=== PATIENT | female | born 1990 | race American Indian/Alaskan Native ===

== ENCOUNTER 2019-08-30 19:41 | Emergency (ER) | payer MEDICAID, OTHER ==
[2019-08-30 22:49] LABS: Bacteria,Urine 1+ /HPF (Negative); Bilirubin,Urine NEG (Negative); Blood,Urine MOD (Negative); Color,Urine Yellow (Yellow); Mucus,Urine FEW /HPF; Protein,Urine <15 mg/dL mg/dL (Negative); Urobilinogen,Urine < 2.0 mg/dL (<2.0)
[2019-08-30 23:28] LABS: Basophils % (Auto) 0.4 % (0.0-1.8); Eosinophils % (Auto) 0.2 % (0.0-4.3); Hemoglobin 13.9 gm/dl (10.1-14.3); Lymphocytes # (Auto) 1.5 K/mm3 (1.2-5.4); Lymphocytes % (Auto) 17.9 % (13.4-35.0); Mean Corpuscular HGB Conc 33 % (30-34); Mean Corpuscular Volume 91 fl (79-97); Monocytes # (Auto) 0.4 K/mm3 (0.0-0.8); Monocytes % (Auto) 5.1 % (0.0-7.3); Platelet Count 308 K/mm3 (140-440); Red Blood Count 4.62 M/mm3 (3.65-5.03); Red Cell Distribution Width 13.7 % (13.2-15.2)
[2019-08-30] MEDS ORDERED: MORPHINE 4 MG/1 ML INJ IV ONE (23:55)
[2019-08-30] MEDS ORDERED: ONDANSETRON 4 MG/2 ML INJ IV ONE (23:55)
[2019-08-30] MEDS ORDERED: SODIUM CHLORIDE 0.9% 1000 ML 1,000 ML IV ONE (23:56)
[2019-08-31 00:01] LABS: Alanine Aminotransferase 26 units/L (7-56); Albumin 4.5 g/dL (3.9-5); BUN/Creatinine Ratio 12; Blood Urea Nitrogen 12 mg/dL (7-17); Hemolysis Index 20
--- NOTE | 2019-08-31 01:01 | Emergency Department Report ---
ED Abdominal Pain HPI - General Chief Complaint: Abdominal Pain Stated Complaint: LEFT SIDE ABD PAIN Time Seen by Provider: 08/30/19 23:54 Source: patient Mode of arrival: Wheelchair Limitations: No Limitations - History of Present Illness Initial Comments: 28-year-old -[place] female presents to the emergency room for left flank pain that started this a.m. Patient states that is gotten worse at 6 PM this evening. Patient is taken nothing for pain. Patient reports he feels like she is having a baby. Patient reports she has a history of tubal ligation last menstrual period was 08/22/2019. Patient denies any vaginal bleeding or vaginal discharge. Patient reports her last BM was earlier today it was normal. She denies any diarrhea. Denies any vomiting. Patient reports it is dull mild pain and then had gotten severe. MD Complaint: flank pain -: This morning Location: L flank Radiation: none Severity scale (0 -10): 10 Quality: cramping, sharp Consistency: constant Improves With: nothing Worsens With: nothing Associated Symptoms: denies other symptoms - Related Data LMP Date: 08/22/19 Previous Rx's Medication Instructions Recorded Last Taken Type Vit-Fe Fumar-FA [ 1 each PO QDAY #30 tablet 03/28/12/30/14 Rx Vitamin] Acetaminophen/Codeine [Tylenol #3] 1 tab PO Q6H PRN #20 tab 09/05/15 Unknown Rx Clindamycin [Clindamycin CAP] 300 mg PO Q6H #40 capsule 09/05/15 Unknown Rx Loratadine (Nf) [Claritin] 10 mg PO DAILY #30 tablet 09/05/15 Unknown Rx Prednisone [predniSONE 10 mg 10 mg PO .TAPER #1 tab.ds.pk 09/05/15 Unknown Rx (6-Day Pack, 21 Tabs)] HYDROcodone/APAP 7.5-325 [[place] 1 each PO Q6HR PRN #12 tablet 08/31/19 Unknown Rx 7.5/325] Ibuprofen [Motrin 600 MG tab] 600 mg PO Q8H PRN #21 tablet 08/31/19 Unknown Rx Tamsulosin [Flomax] 0.4 mg PO QDAY 5 Days #5 cap 08/31/19 Unknown Rx Allergies Allergy/AdvReac Type Severity Reaction Status Date / Time Penicillins Allergy Shortness Verified 12/27/14 11:33 of Breath ED Review of Systems ROS: Stated complaint: LEFT SIDE ABD PAIN Other details as noted in HPI Comment: All other systems reviewed and negative ED Past Medical Hx - Past Medical History Previous Medical History?: Yes Hx Hypertension: No Hx Congestive Heart Failure: No Hx Diabetes: No Hx Deep Vein Thrombosis: No Hx GERD: Yes (with only) Hx Sickle Cell Disease: No Hx Headaches / Migraines: Yes (migraines) Hx Seizures: No Hx Asthma: No Hx COPD: No Hx HIV: No - Surgical History Past Surgical History?: Yes Additional Surgical History: Tubal ligation. - Social History Smoking Status: Never Smoker Substance Use Type: None - Medications Home Medications: Home Medications Medication Instructions Recorded Confirmed Last Taken Type Vit-Fe Fumar-FA [ 1 each PO QDAY #30 tablet 03/28/14 12/31/14 12/30/14 Rx Vitamin] Acetaminophen/Codeine [Tylenol #3] 1 tab PO Q6H PRN #20 tab 09/05/15 Unknown Rx Clindamycin [Clindamycin CAP] 300 mg PO Q6H #40 capsule 09/05/15 Unknown Rx Loratadine (Nf) [Claritin] 10 mg PO DAILY #30 tablet 09/05/15 Unknown Rx Prednisone [predniSONE 10 mg 10 mg PO .TAPER #1 tab.ds.pk 09/05/15 Unknown Rx (6-Day Pack, 21 Tabs)] HYDROcodone/APAP 7.5-325 [[place] 1 each PO Q6HR PRN #12 tablet 08/31/19 Unknown Rx 7.5/325] Ibuprofen [Motrin 600 MG tab] 600 mg PO Q8H PRN #21 tablet 08/31/19 Unknown Rx Tamsulosin [Flomax] 0.4 mg PO QDAY 5 Days #5 cap 08/31/19 Unknown Rx ED Physical Exam - General Limitations: No Limitations General appearance: alert, in distress, other (Patient is sitting [place] down when I entered the room) - Head Head exam: Present: atraumatic, normocephalic - Eye Eye exam: Present: normal appearance - ENT ENT exam: Present: mucous membranes moist - Respiratory Respiratory exam: Present: normal lung sounds bilaterally. Absent: respiratory distress - Cardiovascular Cardiovascular Exam: Present: regular rate, normal rhythm. Absent: systolic murmur, diastolic murmur, rubs, gallop - GI/Abdominal GI/Abdominal exam: Present: soft, tenderness (Left flank tenderness). Absent: distended - Back Exam Back exam: Present: CVA tenderness (L) - Neurological Exam Neurological exam: Present: alert, oriented X3 - Psychiatric Psychiatric exam: Present: normal affect, normal mood - Skin Skin exam: Present: warm, dry, intact, normal color. Absent: rash ED Course Vital Signs 08/30/19 08/31/19 08/31/19 20:00 01:05 01:35 Temperature 98.4 F Pulse Rate 74 Respiratory 18 20 20 Rate Blood Pressure 137/71 O2 Sat by Pulse 100 Oximetry ED Medical Decision Making - Lab Data Result diagrams: 08/30/19 22:47 08/30/19 22:47 - Radiology Data Radiology results: report reviewed Patient: MICHELA BARBER MR#: [id number] : 1990 Acct:[id number] Age/Sex: 28 / F ADM Date: 08/30/19 Loc: ED Attending Dr: Ordering Physician: TIMOTEO PEREIRA Date of Service: 08/30/19 Procedure(s): CT abdomen pelvis wo con Accession Number(s): [id number] cc: TIMOTEO PEREIRA CT abdomen pelvis wo con INDICATION: Left flank pain and tenderness. TECHNIQUE: All CT scans at this location are performed using the following dose modulation technique: Automated exposure control. Helical slices were obtained through the abdomen and pelvis. No contrast is administered. COMPARISON: None available. FINDINGS: Abdomen: No acute abnormality is seen in the lower chest. Liver, spleen, pancreas, adrenal glands, and small bowel show no acute abnormality. There are small calyceal stones noted in both kidneys. There is mild left hydroureteronephrosis. The appendix is unremarkable. Pelvis: There is a 4 mm stone in the urinary bladder near the left ureterovesical junction. This may have already passed into the urinary bladder. There are multiple phleboliths in the pelvis. There is no obstruction or inflammation. There is a trace amount of free fluid which is likely physiologic. On review of bone windows, no acute osseous abnormalities are seen. IMPRESSION: 1. There is a 4 mm stone in the urinary bladder near the ureterovesical junction on the left. This may have already passed into the urinary bladder or may be lodged at the orifice. There is mild left hydroureteronephrosis. There is mild nephrolithiasis. Signer Name: Emmett Birch MD Signed: 08/31/2019 2:03 AM Workstation Name: [id number] Transcribed By: Dictated By: Emmett Birch MD Electronically Authenticated By: Emmett Birch MD Signed Date/Time: 08/31/19202 DD/ 0 TD/TT: - Medical Decision Making 28-year-old -[place] female presents to the emergency room for left flank pain that started this a.m. Patient states that is gotten worse at 6 PM this evening. Patient is taken nothing for pain. Patient reports he feels like she is having a baby. Patient reports she has a history of tubal ligation last menstrual period was 08/22/2019. Patient denies any vaginal bleeding or vaginal discharge. Patient reports her last BM was earlier today it was normal. She denies any diarrhea. Denies any vomiting. Patient reports it is dull mild pain and then had gotten severe. IV insertion, normal saline, urinalysis shows moderate amount of blood, IV Zofran IV morphine CT abdomen and pelvis Critical care attestation.: If time is entered above; I have spent that time in minutes in the direct care of this critically ill patient, excluding procedure time. ED Disposition Clinical Impression: Hydronephrosis, Kidney stone on left side, Flank pain, acute Disposition: DC-01 TO HOME OR SELFCARE Is pt being admited?: No Does the pt Need Aspirin: No Condition: Stable Instructions: Abdominal Pain (ED), Flank Pain (ED), Kidney Stones (ED), Renal Colic (ED) Additional Instructions: Take medications as prescribed. Follow-up with a urologist I have listed 1 below for your convenience. InCrease your fluid intake advance her diet as tolerated. Prescriptions: Tamsulosin [Flomax] 0.4 mg PO QDAY 5 Days #5 cap Ibuprofen [Motrin 600 MG tab] 600 mg PO Q8H PRN #21 tablet PRN Reason: Pain HYDROcodone/APAP 7.5-325 [[place] 7.5/325] 1 each PO Q6HR PRN #12 tablet PRN Reason: Pain Referrals: PRIMARY CARE, [Primary Care Provider] - 3-5 Days LINDA SHELBY MD [Staff Physician] - 3-5 Days Forms: Work/School Release Form(ED)
--- NOTE | 2019-08-31 02:08 | Cat Scan Report ---
CT abdomen pelvis wo con INDICATION: Left flank pain and tenderness. TECHNIQUE: All CT scans at this location are performed using the following dose modulation technique: Automated exposure control. Helical slices were obtained through the abdomen and pelvis. No contrast is adminis tered. COMPARISON: None available. FINDINGS: Abdomen: No acute abnormality is seen in the lower chest. Liver, spleen, pancreas, adrenal glands, an d small bowel show no acute abnormality. There are small calyceal stones noted in both kidneys. There is mild left hydroureteronephrosis. The appendix is unremarkable. Pelvis: There is a 4 mm stone in the urinary bladder near the left ureterovesical junction. This may have already passed into the urinary bladder. There are multiple phleboliths in the pelvis. There is no obstruction or inflammation. There is a tra ce amount of free fluid which is likely physiologic. On review of bone windows, no acute osseous abnormalities are seen. IMPRESSION: 1. There is a 4 mm stone in the urinary bladder near the ureterovesical junction on the left. This ma y have already passed into the urinary bladder or may be lodged at the orifice. There is mild left hy droureteronephrosis. There is mild nephrolithiasis. Signer Name: Emmett Birch MD Signed: 08/31/2019 2:03 AM Workstation Name: [id number]
[2019-08-31] MEDS ORDERED: SODIUM CHLORIDE 0.9% 1000 ML 1,000 ML IV ONE (02:33)
[2019-08-31 05:03] VITALS: BP 127/67
== END 2019-08-31 05:03 | disposition home or self-care (01) ==
LOC: ED 19:41
DX: N13.2 Hydronephrosis with renal and ureteral calculous obstruction (principal); K21.9 Gastro-esophageal reflux disease without esophagitis; G43.909 Migraine, unspecified, not intractable, without status migrainosus; Z88.0 Allergy status to penicillin; Z79.899 Other long term (current) drug therapy; Z98.890 Other specified postprocedural states; Z98.51 Tubal ligation status
CPT/HCPCS: 36415; 74176; 80053; 81001; 83690; 84703; 85025; 96374; 96375; 99284; J2270; J2405; J7030